=== PATIENT | female | born 1990 | race Caucasian/White ===

== ENCOUNTER 2020-10-10 10:08 | Observation (INO) | payer MEDICARE, MEDICAID ==
[~2020-10-10] VITALS: Ht 154.9 cm; Wt 104.8 kg
[2020-10-10] MEDS ORDERED: BETAMETH ACET/BETAMETH NA PH 30 MG/5 ML VIAL IM SCH (10:50)
[2020-10-10] MEDS ORDERED: LACTATED RINGERS 1,000 ML IV SCH (10:50)
[2020-10-10 11:15] VITALS: BP 114/63
--- NOTE | 2020-10-10 14:57 | NUR ---
PATIENT HAS BEEN SCREENED AND CATEGORIZED LOW NUTRITION RISK. PATIENT WILL BE SEEN WITHIN 7 DAYS OF ADMISSION. 10/17/20 SCHUYLER KIRK MBA, RD
[2020-10-11] MEDS ORDERED: PNV91TAB10 PO (11:04)
== END 2020-10-10 12:20 | disposition home or self-care (01) ==
LOC: MFCC 10:08
PROVIDERS: ADMIT Obstetrics & Gynecology; ATTEND Obstetrics & Gynecology
DX: O62.9 Abnormality of forces of labor, unspecified (principal); Z20.822 Contact with and (suspected) exposure to COVID-19; O41.03X0 Oligohydramnios, third trimester, not applicable or unspecified; Z88.2 Allergy status to sulfonamides; Z91.040 Latex allergy status; Z88.8 Allergy status to other drugs, medicaments and biological substances; Z3A.35 35 weeks gestation of pregnancy
CPT/HCPCS: 59025; 81000; 87426; 96360; 96372; G0378; J0702; J7120

== ENCOUNTER 2020-10-11 10:23 | Observation (INO) | payer MEDICARE, MEDICAID ==
[~2020-10-11] VITALS: Ht 154.9 cm; Wt 104.8 kg
[2020-10-11] MEDS ORDERED: PNV91TAB10 PO (11:04)
[2020-10-11 11:15] VITALS: BP 108/60
[2020-10-11] MEDS ORDERED: BETAMETH ACET/BETAMETH NA PH 30 MG/5 ML VIAL IM SCH (11:30)
== END 2020-10-11 12:50 | disposition home or self-care (01) ==
LOC: MLD 10:23
PROVIDERS: ADMIT Obstetrics & Gynecology; ATTEND Obstetrics & Gynecology
DX: O62.9 Abnormality of forces of labor, unspecified (principal); Z3A.33 33 weeks gestation of pregnancy; Z88.2 Allergy status to sulfonamides; Z88.8 Allergy status to other drugs, medicaments and biological substances
CPT/HCPCS: 59025; 81000; 96372; G0378; J0702